=== PATIENT | male | born 1980 | race Caucasian/White ===

== ENCOUNTER 2016-07-03 11:20 | Emergency (ER) | payer OTHER ==
[~2016-07-03] VITALS: Ht 182.9 cm; Wt 120.7 kg
[~2016-07-03 11:20] MED LIST: CIPR500T4 PO; METR-1 PO; NEXI40CA PO; PREV30CA36 PO; TRAM-388 PO
[2016-07-03 11:38] VITALS: BP 145/96; PULSE 92; RESP 18; TEMP 98.3; O2SAT 100
[2016-07-03] MEDS ORDERED: PROPARACAINE HCL 0.5% OPHT SOLN 15 ML BTL LEFT EYE ONE (12:15)
--- NOTE | 2016-07-03 12:32 | PD ---
HPI Chief Complaint: Eye Problems/Injury Time Seen by Provider: 12:30 Travel History International Travel<30 days: No Contact w/Intl Traveler<30days: No Traveled to known affect area: No History of Present Illness HPI Patient is a 35-year-old male who presented to emergency for evaluation of right eye pain, visual changes. Patient states he is taking his contact lens on Sunday night when he felt it filled over the scratch his eye. Since that time he's had increasing photophobia, cloudy vision, and pain. Patient denies any fevers, headache or drainage. PFSH Past Medical History Asthma: Yes ( CHILD) Diminished Hearing: No Immunizations Current: No Tetanus Vaccination: < 5 Years Influenza Vaccination: No Past Surgical History Tympanostomy Tube: Yes (BILAT CHILD) Social History Alcohol Use: Yes (SOCIALLY) Tobacco Use: Yes (1 PPD) Substance Use: No Allergies-Medications (Allergen,Severity, Reaction): Coded Allergies: Sulfa (Verified Allergy, Unknown, 07/03/16) Reported Meds & Prescriptions Reported Meds & Active Scripts Active No Active Prescriptions or Reported Medications Review of Systems Except as stated in HPI: all other systems reviewed are Neg Eyes: Positive: Blurred Vision, Photophobia, Redness, Pain, Visual changes Physical Exam Narrative GENERAL: Well-nourished, well-developed patient. SKIN: Warm and dry. HEAD: Normocephalic. EYES: No scleral icterus. Moderate injection in right eye, cornea is cloudy, flourescein exam noted abrasion noted to the center of the cornea. NECK: Supple, trachea midline. No JVD or lymphadenopathy. CARDIOVASCULAR: Regular rate and rhythm without murmurs, gallops, or rubs. RESPIRATORY: Breath sounds equal bilaterally. No accessory muscle use. GASTROINTESTINAL: Abdomen soft, non-tender, nondistended. MUSCULOSKELETAL: No cyanosis, or edema. BACK: Nontender without obvious deformity. No CVA tenderness. Data Data Last Documented VS Vital Signs Date Time Temp Pulse Resp B/P Pulse Ox O2 Delivery O2 Flow Rate FiO2 07/03/16 11:38 98.3 92 18 145/96 100 Orders Proparacaine 0.5% Opth Soln (Alcaine 0.5 (07/03/16 12:15) MDM Medical Decision Making Medical Screen Exam Complete: Yes Emergency Medical Condition: Yes Interpretation(s) Vital Signs Date Time Temp Pulse Resp B/P Pulse Ox O2 Delivery O2 Flow Rate FiO2 07/03/16 11:38 98.3 92 18 145/96 100 Differential Diagnosis Iritis versus episcleritis versus ulceration versus glaucoma versus other Narrative Course Patient's 35-year-old male who presents emergency department for evaluation of right eye pain, photophobia, visual changes that started Sunday after removing his contact lens likely scratching his cornea. Patient's visual acuities markedly decreased, cornea is cloudy, there appears to be an ulceration in the center of the cornea as well. Patient was also seen and evaluated by my attending physician, Dr. Ibanez. Dr. Constantino, warping mill operator was paged. My attending physician spoke with him and Dr. Constantino wants to see the patient immediately in his office. Patient will be discharged at this time with strict follow-up to go directly to his office. Patient verbalizes understanding. Diagnosis Primary Impression: Iritis Additional Impression: Keratitis Referrals: Arik Cameron MD Additional Instructions: Go directly to Dr. Constantino's office at [address] [place] [id number]. [id number] Med/Other Pt SpecificInfo: No Change to Meds Scripts No Active Prescriptions or Reported Meds Disposition: 01 DISCHARGE HOME Condition: Stable Laura Yan Jul 03, 2016 12:32
== END 2016-07-03 12:44 | disposition home or self-care (01) ==
LOC: PHED 11:20 → PHEFT 12:44
DX: H20.9 Unspecified iridocyclitis (principal); H16.9 Unspecified keratitis; H53.149 Visual discomfort, unspecified; F17.210 Nicotine dependence, cigarettes, uncomplicated
CPT/HCPCS: 99283